=== PATIENT | female | born 1980 | race Caucasian/White ===

== ENCOUNTER 2017-02-04 17:57 | Emergency (ER) | payer OTHER ==
[~2017-02-04 17:57] MED LIST: AFRIN3 ML; HYDROCODON-ACE1 EACH PO; IBUPROFEN800 MG PO; LEVOTHROID25 MCG PO; PAXIL PO; PHENERGAN W/CO120 ML PO; TIROSINT25 MCG PO; VITAMIN D 3; VOLTAREN50 MG PO
== END 2017-02-04 18:02 | disposition home or self-care (01) ==
LOC: SED 17:57
DX: J30.2 Other seasonal allergic rhinitis (principal); I10 Essential (primary) hypertension; F41.9 Anxiety disorder, unspecified
CPT/HCPCS: 87651; 99282